=== PATIENT | male | born 2005 | race Caucasian/White ===

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

== ENCOUNTER 2025-05-15 18:05 | Emergency (ER) | payer BC ==
[2025-05-15] MEDS: Lidocaine/Epineph/Tetracaine 3 ML Syringe TOP ONE (18:22)
[2025-05-15] MEDS ORDERED: Bacitracin/Neomycin/Polymyxin B Oint 0.9 GM U/D Packet TOP ONE (18:44)
[2025-05-15] MEDS ORDERED: Diphtheria,Pertussis(Acell),Tetanus Vaccine 0.5 ML Syringe IM ONE (18:45)
[2025-05-15 19:00] VITALS: BP 118/72; PULSE 16
== END 2025-05-15 18:52 | disposition home or self-care (01) ==
LOC: KA.ED 18:05
DX: S81.011A Laceration without foreign body, right knee, initial encounter (principal); W22.8XXA Striking against or struck by other objects, initial encounter; Y93.89 Activity, other specified
CPT/HCPCS: 12001; 99282; 99283; A9270-GY